=== PATIENT | female | born 1965 | race American Indian/Alaskan Native ===

== ENCOUNTER 2016-12-22 16:11 | Emergency (ER) | payer OTHER, BC ==
[2016-12-22 16:21] VITALS: BMI 36.0
[2016-12-22 16:35] VITALS: RESP 18; TEMP 97.7; O2SAT 95
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
[2016-12-22 18:22] VITALS: BP 142/78; PULSE 77
--- NOTE | 2016-12-23 07:52 | RAD ---
PROCEDURE: Cervical Spine Radiographs. HISTORY: Pain. COMPARISON: None. FINDINGS: BONES: Alignment maintained. No fracture. Dens Intact. Mild multilevel facet arthropathy predominate at the mid and inferior levels. DISC SPACES: Normal. SOFT TISSUES: Normal. No prevertebral soft tissue swelling. OTHER FINDINGS: None. IMPRESSION: No displaced fracture or spondylolisthesis identified. Multilevel facet arthropathy predominantly at the mid inferior levels.
== END 2016-12-22 18:28 | disposition home or self-care (01) ==
LOC: C.ER 16:11
DX: S16.1XXA Strain of muscle, fascia and tendon at neck level, initial encounter (principal); V49.50XA Passenger injured in collision with unspecified motor vehicles in traffic accident, initial encounter